=== PATIENT | male | born 2000 | race Caucasian/White ===

== ENCOUNTER 2025-02-15 15:56 | Emergency (ER) | payer SELFPAY ==
[2025-02-15 17:36] LABS: Influenza A Ag Negative; Influenza B Ag Negative; SARS-CoV-2 Antigen Rapid Res Negative (Negative)
--- NOTE | 2025-02-15 17:55 | EDPHYS ---
Physician Documentation [facility] Name: Daniel Connelly Age: 24 yrs Sex: Male : 2000 Arrival Date: 02/15/2025 Time: 15:56 Bed 10 Private MD: Flaco Jones HPI: 02/15 17:00 This 24 yrs old Male presents to ER via Ambulatory with complaints of Fever, cp Nausea/Vomiting, Headache. 17:00 The patient or guardian reports cough, that is intermittent, with productive sputum. cp Onset: The symptoms/episode began/occurred 2 week(s) ago. Associated signs and symptoms: Pertinent positives: nausea, headache, congestion. Historical: - Allergies: 16:38 No Known Allergies; iw - Home Meds: 16:38 None [Active]; iw - PMHx: 16:38 None; iw - PSHx: 16:38 None; iw - Immunization history:: Adult Immunizations. - Infectious Disease History:: Denies. - Social history:: Smoking status: Patient reports the use of cigarette tobacco products, denies chronic smoking, but will smoke occasionally, Reported history of juuling and/or vaping. ROS: 17:05 Constitutional: Negative for body aches, fever, cp 17:05 Eyes: Negative for injury, pain, redness, and discharge, cp 17:05 ENT: Positive for sore throat, 17:05 Respiratory: Positive for cough, Negative for shortness of breath, wheezing, 17:05 Abdomen/GI: Negative for abdominal pain, diarrhea, constipation, active vomiting, 17:05 Skin: Negative for rash, 17:05 Neuro: Positive for headache, 17:05 All other systems are negative, Exam: 17:05 Head/Face: Normocephalic, atraumatic. cp 17:05 Constitutional: The patient appears in no acute distress, alert, awake, non-toxic, well developed, well nourished, 17:05 Eyes: Periorbital structures: appear normal, Conjunctiva: normal, no exudate, no injection, Sclera: no appreciated abnormality, Lids and lashes: appear normal, bilaterally, 17:05 ENT: External ear(s): are unremarkable, Ear canal(s): are normal, clear, TM's: dullness, bilaterally, Nose: is normal, Mouth: Lips: moist, Oral mucosa: moist, Posterior pharynx: Airway: no evidence of obstruction, patent, Tonsils: no enlargement, no exudate, erythema, that is mild, exudate, is not appreciated, Voice: is normal, 17:05 Neck: ROM/movement: Meningeal signs: are not present, Lymph nodes: no appreciated lymphadenopathy, 17:05 Chest/axilla: Inspection: normal, 17:05 Cardiovascular: Rate: normal, 17:05 Respiratory: the patient does not display signs of respiratory distress, Respirations: normal, no use of accessory muscles, no retractions, labored breathing, is not present, Breath sounds: bronchial sounds, that are mild, are heard diffusely, stridor, is not appreciated, wheezing: is not appreciated, 17:05 Abdomen/GI: Exam negative for discomfort, distension, guarding, Inspection: abdomen appears normal, 17:05 Skin: no rash present. Vital Signs: 16:36 BP 129 / 94; Pulse 65; Resp 16; Temp 98.3; Pulse Ox 100% on R/A; Weight 65.77 kg; iw Height 5 ft. 11 in. ; 16:36 Body Mass Index 20.22 (65.77 kg, 180.34 cm) iw MDM: 16:37 Medical Screening Exam initiated cp 17:55 Data reviewed: vital signs, nurses notes, lab test result(s), radiologic studies, plain cp films, and as a result, I will discharge patient. 17:55 Differential diagnosis: bronchitis, viral Infection, bacterial infection, bronchitis, cp pneumonia. I considered the following discharge prescriptions or medication management in the emergency department Medications were administered in the Emergency Department. See MAR. Independent interpretation of the following test(s) in the Emergency Department X-Ray: My interpretation is chest image s negative for focal pneumonia. Counseling: I had a detailed discussion with the patient and/or guardian regarding the historical points, exam findings, and any diagnostic results supporting the discharge/admit diagnosis, lab results, radiology results, to return to the emergency department if symptoms worsen or persist or if there are any questions or concerns that arise at home. 02/15 16:57 Order name: COVID-19 Ag + Flu A+B Ag cp 02/15 16:57 Order name: XRAY Chest Pa And Lat (2 Views) cp Administered Medications: 18:40 Drug: Ondansetron PO 4 mg PO once Route: PO; kb4 18:41 Follow up: Response: Medication administered at discharge. kb4 18:40 Drug: Tessalon Perle PO 100 mg PO once Route: PO; kb4 18:41 Follow up: Response: Medication Administered at Departure kb4 18:41 Drug: Acetaminophen PO 650 mg PO once Route: PO; kb4 18:41 Follow up: Response: Medication administered at discharge. kb4 Disposition: 02/16 08:29 Co-signature as Attending Physician, Flaco Bashir MD I agree with the assessment and guillermo plan of care. Disposition Summary: 02/15/25 17:55 Discharge Ordered Notes: Location: Home cp Problem: new cp Symptoms: have improved cp Condition: Stable cp Diagnosis - Cough cp Followup: cp - With: Private Physician - When: 2 - 3 days - Reason: Worsening of condition Discharge Instructions: - Discharge Summary Sheet cp - General Headache Without Cause cp - Nausea and Vomiting, Adult cp - Cough, Adult cp Forms: - Work release form sp - Medication Reconciliation Form cp - Antibiotic Education cp - Prescription Opioid Use cp - Patient Portal Instructions cp - Leadership Thank You Letter cp Prescriptions: - Zofran 4 mg Oral tablet - take 1 tablet ORAL route every 12 hours As needed; 10 tablet; Refills: 0, cp Product Selection Permitted - Tessalon Perles 100 mg Oral Capsule - take 1 capsule ORAL route every 8 hours As needed; 15 capsule; Refills: 0, cp Product Selection Permitted - Zithromax Z-Juice 250 mg Oral Tablet - take 1 tablet ORAL route as directed for 5 days Day 1 - take two (2) tablets cp one time. Day 2, 3, 4 , 5 take one (1) tablet once daily.; 6 tablet; Refills: 0, Product Selection Permitted Signatures: Dispatcher [employer] Flaco Arnett MD MD cha Williams, Irene, RN Flaco Armstrong, PA-C PA-C Lyly Echeverria RN RN kb4
--- NOTE | 2025-02-15 17:55 | ER ---
Nurse's Notes [facility] Name: Daniel Connelly Age: 24 yrs Sex: Male : 2000 Arrival Date: 02/15/2025 Time: 15:56 Bed 10 Private MD: Diagnosis: Cough Presentation: 02/15 16:36 Chief complaint: Patient states: nausea, headache, fever, started when people at work iw were sick, has been coughing up sputum, X 2 weeks, worse past 4 days , had to call out from work and needs a work note. Coronavirus screen: Client presents with at least one sign or symptom that may indicate coronavirus-19. Ebola Screen: No symptoms or risks identified at this time. Initial Sepsis Screen: Does the patient meet any 2 criteria? No. Patient's initial sepsis screen is negative. Does the patient have a suspected source of infection? No. Patient's initial sepsis screen is negative. Risk Assessment: Do you want to hurt yourself or someone else? Patient reports no desire to harm self or others. Onset of symptoms was February 11, 2025. 16:36 Method Of Arrival: Ambulatory iw 16:36 Acuity: CAM 4 iw Triage Assessment: 18:44 GI: Reports nausea. kb4 Historical: - Allergies: 16:38 No Known Allergies; iw - Home Meds: 16:38 None [Active]; iw - PMHx: 16:38 None; iw - PSHx: 16:38 None; iw - Immunization history:: Adult Immunizations. - Infectious Disease History:: Denies. - Social history:: Smoking status: Patient reports the use of cigarette tobacco products, denies chronic smoking, but will smoke occasionally, Reported history of juuling and/or vaping. Screenin:30 [facility] ED Fall Risk Assessment (Adult) History of falling in the last 3 months, kb4 including since admission No falls in past 3 months (0 pts) Confusion or Disorientation No (0 pts) Intoxicated or Sedated No (0 pts) Impaired Gait No (0 pts) Mobility Assist Device Used No (0 pt) Altered Elimination No (0 pt) Score/Fall Risk Level 0 - 2 = Low Risk. Abuse screen: Denies threats or abuse. Denies injuries from another. Nutritional screening: No deficits noted. Tuberculosis screening: No symptoms or risk factors identified. Assessment: 18:30 General: Appears in no apparent distress. comfortable, Behavior is calm, cooperative. kb4 Neuro: Level of Consciousness is awake, alert, obeys commands, Oriented to person, place, time, situation. 18:30 Cardiovascular: Patient's skin is warm and dry. Respiratory: Airway is patent kb4 Respiratory effort is even, unlabored, Respiratory pattern is regular, symmetrical. 18:42 Pain: Complains of pain in abdomen. GI: Abdomen is flat. kb4 Vital Signs: 16:36 BP 129 / 94; Pulse 65; Resp 16; Temp 98.3; Pulse Ox 100% on R/A; Weight 65.77 kg; iw Height 5 ft. 11 in. ; 16:36 Body Mass Index 20.22 (65.77 kg, 180.34 cm) iw ED Course: 16:03 Patient arrived in ED. cj3 16:05 Flaco Fields PA-C is PHCP. cp 16:05 Flaco Bashir MD is Attending Physician. cp 16:38 Triage completed. iw 16:39 Arm band placed on. iw 17:17 XRAY Chest Pa And Lat (2 Views) In Process Unspecified. EDMS 18:12 Lyly Yee, RN is Primary Nurse. kb4 18:30 Patient has correct armband on for positive identification. Provided Education on: d/c .kb4 18:30 No provider procedures requiring assistance completed. Patient did not have IV access kb4 during this emergency room visit. Administered Medications: 18:40 Drug: Ondansetron PO 4 mg PO once Route: PO; kb4 18:41 Follow up: Response: Medication administered at discharge. kb4 18:40 Drug: Tessalon Perle PO 100 mg PO once Route: PO; kb4 18:41 Follow up: Response: Medication Administered at Departure kb4 18:41 Drug: Acetaminophen PO 650 mg PO once Route: PO; kb4 18:41 Follow up: Response: Medication administered at discharge. kb4 Medication: 18:30 VIS not applicable for this client. kb4 Outcome: 17:55 Discharge ordered by MD. cp 18:44 Discharged to home ambulatory, kb4 18:44 Condition: stable 18:44 Condition: good 18:44 Discharge instructions given to patient, Instructed on discharge instructions, follow up and referral plans. medication usage, Demonstrated understanding of instructions, follow-up care, medications, Prescriptions given X 3, 18:44 Patient left the ED. kb4 Signatures: Dispatcher [employer] EDCasi Graham, RN RN iw Flaco Fields PA-C PA-C cp Bowen, Kayla, RN RN kb4 Milla Gil cj3 Corrections: (The following items were deleted from the chart) 16:38 16:36 Chief complaint: Patient states: nausea, headache, fever, started when people at iw work were sick, has been coughing up sputum, X 2 weeks, worse past 4 days iw 16:40 16:36 Acuity: CAM 3 iw iw
--- NOTE | 2025-02-15 18:05 | RAD REPORT ---
EXAMINATION: TWO VIEW CHEST XR CLINICAL INDICATION: Male, 24 years old. [facility] Bed Name: [facility] TECHNIQUE: 2 view radiographs of the chest were performed. COMPARISON: No prior exam. FINDINGS: The lungs are well inflated and clear. No pneumothorax or sizable effusion. The heart is normal in si ze. Mediastinal contours are unremarkable. IMPRESSION: No acute or significant abnormalities.
[2025-02-15] MEDS ORDERED: ONDANSETRON 4 MG (ODT) TAB ONE (18:18)
[2025-02-15] MEDS ORDERED: ACETAMINOPHEN 325 MG TABLET ONE (18:18)
[2025-02-15] MEDS ORDERED: BENZONATATE 100 MG CAP PO ONE (18:19)
[2025-02-16 00:18] VITALS: BP 129/94; TEMP 98.3; O2SAT 100
== END 2025-02-15 18:44 | disposition home or self-care (01) ==
LOC: ER 15:56
DX: R05.9 Cough, unspecified (principal); R51.9 Headache, unspecified; R11.0 Nausea; Z72.0 Tobacco use; Z11.52 Encounter for screening for COVID-19
CPT/HCPCS: 36415; 71046; 87428; 99283; Q0162